=== PATIENT | female | born 1945 | race Caucasian/White ===

== ENCOUNTER → 2016-08-13 | Outpatient (CLI) | payer MEDICARE, BC ==
[~2016-08-13] MED LIST: COLACE-DPS100 MG PO; ESTRADIOL1 MG PO; FLEXERIL DPS5 MG PO; GUAIFENESIN ER600 MG PO; MAALOX DPS30 ML PO; METOPROLOL TART25 MG PO; NEURONTIN DPS100 MG PO; NEURONTIN DPS300 MG PO; NORCO 7.5-3251 EACH PO; PRILOSEC DPS20 MG PO; SURFAK240 MG PO; TYLENOL DPS325 MG PO; ULTRAM DPS50 MG PO
== END | disposition home or self-care (01) ==
LOC: RAD.S 07:14
DX: Z12.31 Encounter for screening mammogram for malignant neoplasm of breast (principal)